=== PATIENT | male | born 1985 | race African-American/Black ===

== ENCOUNTER 2017-07-02 20:26 | Emergency (ER) | payer MEDICAID, OTHER ==
[2017-07-02 21:42] LABS: ALT (SGPT) 23 U/L (8-55); AST (SGOT) 41 U/L (5-34); Acetaminophen Less than 6.0 mcg/mL (10.0-30.0); Alkaline Phosphatase 98 U/L (40-150); Anion Gap 17 mmol/L (10-20); BUN (Urea Nitrogen) 8 mg/dL (8.9-20.6); Bilirubin, Total 0.6 mg/dL (0.2-1.2); CK (CPK) 1419 U/L (30-200); Calc. Creatinine Clearance 0 mL/min (70-130); Calcium 9.7 mg/dL (7.8-10.44); Carbon Dioxide 22 mmol/L (22-29); Chloride 104 mmol/L (98-107); Estimated GFR-MDRD 83; Protein, Total 7.3 g/dL (6.0-8.3); Salicylate Less than 8.0 mg/dL (15.0-30.0)
[2017-07-02 21:42] LABS: Bilirubin Negative (Negative); Blood, Urine Negative (Negative); Glucose, Urine (Dipstick) Negative (Negative); Ketone, Urine Negative (Negative); Nitrite Negative (Negative); Protein, Urine (Dipstick) Negative (Neg-Trace)
[2017-07-02 21:51] LABS: Amphetamine Not Detected (NotDetected); Methadone Not Detected (NotDetected); Methamphetamine Not Detected (NotDetected)
[2017-07-02 22:02] LABS: Anisocytosis MODERATE=16-30 cells (100X) (0-5/hpf); Mean Platelet Volume 6.9 fL (7.4-10.4); Neutrophil 60 % (42-75); Red Blood Cell (RBC) Count 6.04 mill/uL (4.70-6.10); Target Cells SLIGHT = 2-5 cells (100X) (0-1/hpf); White Blood Cell (WBC) Count 9.2 thou/uL (4.8-10.8)
[2017-07-02] MEDS ORDERED: Lorazepam 2 MG/ML VIAL ONE (22:21)
[2017-07-02] MEDS ORDERED: Haloperidol Lactate 5 MG/ML VIAL ONE (22:21)
[2017-07-03] MEDS ORDERED: Lorazepam 2 MG/ML VIAL ONE (19:33)
[2017-07-03] MEDS ORDERED: Haloperidol Lactate 5 MG/ML VIAL ONE (19:33)
== END 2017-07-04 15:51 | disposition home or self-care (01) ==
LOC: ERS 20:26
DX: F29 Unspecified psychosis not due to a substance or known physiological condition (principal); G43.909 Migraine, unspecified, not intractable, without status migrainosus; F31.9 Bipolar disorder, unspecified; F41.9 Anxiety disorder, unspecified; F20.9 Schizophrenia, unspecified; F90.9 Attention-deficit hyperactivity disorder, unspecified type; F17.210 Nicotine dependence, cigarettes, uncomplicated
CPT/HCPCS: 36415; 80053; 80306; 80307; 81003; 82550; 84443; 85025; 96372; J1630; J2060

== ENCOUNTER 2021-08-01 09:44 | Emergency (ER) | payer SELFPAY ==
[2021-08-01] MEDS ORDERED: Lidocaine 1% w/Epinephrine 1:100K 20 ML VIAL ONE (10:49)
[2021-08-01] MEDS ORDERED: traMADol HCl 50 MG TAB ONE (11:11)
== END 2021-08-01 11:27 | disposition home or self-care (01) ==
LOC: ERS 09:44
DX: K61.0 Anal abscess (principal); F17.210 Nicotine dependence, cigarettes, uncomplicated
CPT/HCPCS: 46050; 87070; 87205